=== PATIENT | female | born 1935 | race Caucasian/White ===

== ENCOUNTER 2020-11-25 17:35 | Emergency (ER) | payer MEDICARE, BC ==
[~2020-11-25 17:35] MED LIST: B COMPLEX1 EACH PO; DAILY VITE1 EACH PO; DONEPEZIL HCL10 MG PO; KEPPRA 250 MG250 MG PO; KEPPRA500 MG PO; METHOCARBAMOL500 MG PO; MIRALAX17 GM PO; NUEDEXTA 20-101 EACH PO; VITAMIN D325 MC6 PO
[2020-11-25 21:04] LABS: HEMOGLOBIN 11.6 gm/dl (12.3-15.3); RED BLOOD COUNT 3.98 M/UL (4.00-5.10); WHITE BLOOD COUNT 8.5 K/UL (4.5-11.0)
[2020-11-25 21:35] LABS: BUN/CREATININE RATIO 22 (0-10)
[2020-11-25] MEDS ORDERED: OMNICEF 300 MG300 MG PO (22:36)
== END 2020-11-25 23:35 | disposition home or self-care (01) ==
LOC: ER1 17:35
PROVIDERS: Physician Assistant
DX: N39.0 Urinary tract infection, site not specified (principal); R53.1 Weakness; F03.90 Unspecified dementia, unspecified severity, without behavioral disturbance, psychotic disturbance, mood disturbance, and anxiety; Z88.5 Allergy status to narcotic agent
CPT/HCPCS: 70450; 71045; 72125; 80053; 81001; 82550; 82553; 83605; 83690; 83735; 83874; 83880; 84439; 84443; 84484; 85025; 85610; 85652; 85730; 86140; 87040; 87086; 93005; 96365; 99284; J0696